=== PATIENT | female | born 1980 | race African-American/Black ===

== ENCOUNTER → 2016-07-03 | Outpatient (CLI) | payer OTHER ==
[~2016-07-03] MED LIST: ADVIL200 MG PO; CEFDINIR300 MG PO; MOTRIN800 MG PO; NAPROSYN500 MG PO; NORCO 7.5/321 TABLET PO; PERCOCET 5/31 TABLET PO; ZYRTEC10 M3 PO
== END | disposition home or self-care (01) ==
LOC: CDC 10:06
DX: I45.9 Conduction disorder, unspecified (principal); E66.01 Morbid (severe) obesity due to excess calories
CPT/HCPCS: 93000

== ENCOUNTER 2016-10-28 21:19 | Inpatient (IN) | payer OTHER ==
[~2016-10-28] VITALS: Ht 180.3 cm; Wt 170.1 kg
[~2016-10-28 21:19] MED LIST changes: +ADVIL,NUPRIN,M200 MG PO
[2016-10-29 10:58] VITALS: BP 132/63
[2016-10-29 11:01] LABS: POINT-OF-CARE METER ID UU14174212
[2016-10-29 18:10] LABS: POINT-OF-CARE METER ID UU13113675
[2016-10-29 20:50] VITALS: BP 170/80
[2016-10-29 23:55] LABS: POINT-OF-CARE METER ID UU14162508
[2016-10-29 23:58] VITALS: BP 178/82
[2016-10-30 03:50] VITALS: BP 172/80
[2016-10-30 05:39] LABS: POINT-OF-CARE METER ID UU14162508
[2016-10-30 07:20] VITALS: BP 179/83
[2016-10-30 07:37] LABS: HEMATOCRIT 34.8 % (36.0-46.0); MCH 29.7 PG (29.0-34.0); MCHC 33.6 G/DL (30.0-36.0); MCV 88.3 FL (83-99); MEAN PLAT.VOLUME 10.1 uM^3 (9.5-12.4); PLATELET COUNT 319 K/uL (156-360); RBC DIS.WIDTH-SD 45.4 % (39-53); RED BLOOD COUNT 3.94 M/uL (3.80-5.20); WHITE BLOOD COUNT 13.9 K/uL (4.1-10.2)
[2016-10-30 08:07] LABS: ANION GAP 11 MEQ/L (2-14); CHLORIDE 106 MEQ/L (99-109); GFR ESTIMATE (CALCULATED) > 59 mL/min/; GLUCOSE 114 mg/dL (70-99); MAGNESIUM 1.7 mg/dl (1.3-2.7); POTASSIUM 4.1 MEQ/L (3.7-5.4); SAMPLE HEMOLYSIS CHECK 0; SAMPLE ICTERIC CHECK 0; SAMPLE LIPEMIA CHECK 0; SODIUM 137 MEQ/L (136-147); UREA NITROGEN (BUN) 8 mg/dL (9-23)
[2016-10-30] MEDS ORDERED: HYDROCODON-ACE1 EAC7 PO (10:19)
== END 2016-10-30 11:27 | disposition home or self-care (01) | DRG 621 ==
LOC: ENRESERV 21:19 → 2SOUTH 10-29 05:52 → 2EASTP 10-29 10:28 → 2SOUTH 10-29 12:22 → ENRESERV 10-29 19:45 → 2EASTP 10-29 20:43
PROVIDERS: Surgery
PROC: 0DB64Z3 Excision of Stomach, Percutaneous Endoscopic Approach, Vertical (ICD-10-PCS; principal; 2016-10-29)
DX: E66.01 Morbid (severe) obesity due to excess calories (principal); Z68.43 Body mass index [BMI] 50.0-59.9, adult; D25.9 Leiomyoma of uterus, unspecified
CPT/HCPCS: 80048; 82948; 83735; 84100; 85027; J0131; J0330; J0690; J1100; J1170; J1644; J1650; J1815; J1885; J2250; J2405; J2710; J2765; J3010; J3480; J7120; Q0169; S0020